=== PATIENT | female | born 1940 | race Caucasian/White ===

== ENCOUNTER → 2016-10-16 | Outpatient (CLI) | payer MEDICARE, OTHER, MEDICAID ==
[~2016-10-16] VITALS: Ht 157.5 cm; Wt 117.0 kg
[~2016-10-16] MED LIST: ACET-2890 PO; ALBU2.5V7 AEROSOL; ARIP5TAB12 PO; BENZ200C36 PO; BISA10SU8 RECTALLY; CLON0.5T4 PO; CRAN1TAB6 PO; DOCU-175 PO; DULO30CA52 PO; FLUT15.88 INH; FLUT1DIS3 ORAL INH; FURO80TA3 PO; GABA-338 PO; GUAI-782 PO; IPRA3AMP AEROSOL; KETO5DRO BOTH EYES; LOPE2TAB24 PO; LORA10TA7 PO; MAG360OR92 PO; MAGN400O4 PO; METH4TAB3 PO; METO2.5T2 PO; MORP30TA95 PO; NYST8800 TOP; ONDA4TAB10 PO; OXYC-533 PO; PANT40TA27 PO; POLY17PO2 PO; POTA20TA10 PO; REGADENOSON 0.4mg/5ml INJECTION IV ONE; SALINE FLUSH 10ml SYRINGE ONE; SIMV20TA6 PO; SODI44SP NS; SODI45SP7 EA NOSTRIL; SPIR25TA4 PO; TRAZ-173 PO; TROL177. TOP
--- NOTE | 2016-10-16 14:48 | ESTF ---
PHARMACOLOGICAL STRESS NUCLEAR SCAN DATE 10/16/2016 INDICATION R06.02, shortness of breath. PROCEDURE The patient was unable to exercise on a treadmill. She uses a wheelchair for mobility. She was injected with Tc-99m Myoview, dose of 12.8 mCi at rest, followed by Lexiscan dose of 0.4 mg followed by Tc-99m Myoview dose of 31.7 mCi. Stress and rest perfusion images were obtained per protocol. Rest EKG shows a sinus rhythm, a small Q wave in V3 through V6 and in inferior leads as well as one in AVL suggestive of prior multiple infarcts. Resting blood pressure 191/46, heart rate of 86 beats per minute. Heart rate went up 106 beats per minute, 73% of age-predicted maximum heart rate. Blood pressure modestly dropped to 128/71 mmHg. Patient was asymptomatic. EKG during the pharmacological stress did not show any diagnostic ST depression or elevation. No arrhythmia except rare PVCs, isolated, in recovery. Stress and rest perfusion images show a medium-size perfusion defect in the inferolateral wall, appears fixed. No significant redistribution to suggest any ischemia. This includes mid inferior and inferolateral weldon overall medium in size. The uptake in the septum, anterior and anterolateral wall appears normal. Gated images show normal wall motion, normal contractility, normal LV ejection fraction, 69% on stress images, 68% on rest images. Rotatogram does not show any abnormal extracardiac uptake or significant motion artifact. IMPRESSION Pharmacological stress nuclear scan is clinically and electrically without acute changes although EKG evidence of prior multiple infarcts as above. Scintigraphically shows a fixed medium-size perfusion defect involving the anterior and inferolateral wall without redistribution. In summary, study does not show evidence of reversible ischemia - nevertheless, evidence of coronary artery disease. If the patient is having progressive worsening dyspnea or active chest pain, then additional clinical correlation may be needed. If not, these findings would more likely be related to an old OK. BRITD
== END ==
LOC: IMA 08:28
PROVIDERS: ATTEND Internal Medicine Cardiovascular Disease
DX: I25.10 Atherosclerotic heart disease of native coronary artery without angina pectoris (principal); R94.39 Abnormal result of other cardiovascular function study; I25.2 Old myocardial infarction; I35.0 Nonrheumatic aortic (valve) stenosis; I50.1 Left ventricular failure, unspecified; R06.02 Shortness of breath
CPT/HCPCS: 78452; 93017; A9502; J2785

== ENCOUNTER → 2016-10-30 | Outpatient (CLI) | payer MEDICARE, OTHER, MEDICAID ==
[~2016-10-30] MED LIST changes: -REGADENOSON 0.4mg/5ml INJECTION IV ONE; -SALINE FLUSH 10ml SYRINGE ONE
[2016-10-30 07:08] LABS: POTASSIUM 2.9 MEQ/L (3.6-5)
== END ==
LOC: LABNH.AP 00:54
PROVIDERS: ATTEND Orthopaedic Surgery
DX: Z01.818 Encounter for other preprocedural examination (principal); E87.6 Hypokalemia
CPT/HCPCS: 36415; 84132; P9604

== ENCOUNTER → 2016-10-31 | Outpatient (CLI) | payer MEDICARE, OTHER, MEDICAID ==
[2016-10-31 09:41] LABS: POTASSIUM 2.8 MEQ/L (3.6-5)
== END ==
LOC: LABNH.AP 03:13
PROVIDERS: ATTEND Nurse Practitioner
DX: E87.6 Hypokalemia (principal)
CPT/HCPCS: 36415; 84132; P9604

== ENCOUNTER → 2016-11-01 | Outpatient (CLI) | payer MEDICARE, OTHER, MEDICAID | LOC: LABNH.AP 00:38 | PROVIDERS: ATTEND Nurse Practitioner | DX: E87.6 Hypokalemia (principal) | CPT/HCPCS: 36415; 84132; P9604 ==

== ENCOUNTER → 2016-11-02 | Outpatient (CLI) | payer MEDICARE, OTHER, MEDICAID ==
[2016-11-02 06:29] LABS: POTASSIUM 3.6 MEQ/L (3.6-5)
== END ==
LOC: LABN.AP 00:41 → LABNH.AP 01:17
PROVIDERS: ATTEND Family Medicine
DX: E87.6 Hypokalemia (principal)
CPT/HCPCS: 36415; 84132; P9604

== ENCOUNTER → 2016-11-05 | Outpatient (CLI) | payer MEDICARE, OTHER, MEDICAID ==
[2016-11-05 06:49] LABS: POTASSIUM 4.1 MEQ/L (3.6-5)
== END ==
LOC: LABNH.AP 02:05
PROVIDERS: ATTEND Nurse Practitioner
DX: E87.6 Hypokalemia (principal)
CPT/HCPCS: 36415; 84132; P9604

== ENCOUNTER → 2016-11-06 | Outpatient (CLI) | payer MEDICARE, OTHER, MEDICAID ==
[2016-11-06 07:24] LABS: POTASSIUM 4.3 MEQ/L (3.6-5)
== END ==
LOC: LABNH.AP 01:48
PROVIDERS: ATTEND Nurse Practitioner
DX: E87.6 Hypokalemia (principal)
CPT/HCPCS: 36415; 84132

== ENCOUNTER → 2016-11-09 | Outpatient (CLI) | payer MEDICARE, OTHER, MEDICAID ==
[2016-11-09 06:22] LABS: ANION GAP 13 MEQ/L (5-15); BUN/CREATININE RATIO 18 RATIO (6-26); CALCIUM 8.5 MG/DL (8.4-10.2); CHLORIDE 89 MEQ/L (98-107); CO2 - CARBON DIOXIDE 36 MEQ/L (22-30); CREATININE 0.9 MG/DL (0.7-1.2); GLOMERULAR FILTRATION RATE 61; GLUCOSE 126 MG/DL (65-110); POTASSIUM 3.1 MEQ/L (3.6-5); SODIUM 138 MEQ/L (134-144)
== END ==
LOC: LABNH.AP 00:19
PROVIDERS: ATTEND Family Medicine
DX: E87.6 Hypokalemia (principal)
CPT/HCPCS: 36415; 80048; P9604

== ENCOUNTER → 2016-11-14 | Outpatient (CLI) | payer MEDICARE, OTHER, MEDICAID ==
[2016-11-14 07:54] LABS: POTASSIUM 3.1 MEQ/L (3.6-5)
== END ==
LOC: LABNH.AP 01:38
PROVIDERS: ATTEND Nurse Practitioner
DX: E87.6 Hypokalemia (principal)
CPT/HCPCS: 36415; 84132; P9604

== ENCOUNTER → 2016-11-21 | Outpatient (CLI) | payer MEDICARE, OTHER, MEDICAID ==
[2016-11-21 10:03] LABS: POTASSIUM 2.8 MEQ/L (3.6-5)
== END ==
LOC: LABNH.AP 01:20
PROVIDERS: ATTEND Nurse Practitioner
DX: E87.6 Hypokalemia (principal)
CPT/HCPCS: 36415; 84132; P9604

== ENCOUNTER → 2016-11-28 | Outpatient (CLI) | payer MEDICARE, OTHER, MEDICAID ==
[2016-11-28 08:17] LABS: POTASSIUM 3.6 MEQ/L (3.6-5)
== END ==
LOC: LABNH.AP 00:55
PROVIDERS: ATTEND Nurse Practitioner
DX: E87.6 Hypokalemia (principal)
CPT/HCPCS: 36415; 84132; P9604

== ENCOUNTER → 2016-12-12 | Outpatient (CLI) | payer MEDICARE, OTHER, MEDICAID ==
[2016-12-12 08:12] LABS: POTASSIUM 3.5 MEQ/L (3.6-5)
== END ==
LOC: LABNH.AP 01:04
PROVIDERS: ATTEND Nurse Practitioner
DX: E87.6 Hypokalemia (principal)
CPT/HCPCS: 36415; 84132